=== PATIENT | female | born 1970 | race Caucasian/White ===

== ENCOUNTER → 2017-02-06 | Outpatient (CLI) | payer MEDICAID | LOC: FIMAGING 07:49 | DX: Z12.31 Encounter for screening mammogram for malignant neoplasm of breast (principal) | CPT/HCPCS: G0202 ==

== ENCOUNTER → 2017-09-09 | Outpatient (CLI) | payer MEDICAID | LOC: FIMAGING 14:50 | PROVIDERS: ATTEND Surgery | DX: R92.2 Inconclusive mammogram (principal); Z85.3 Personal history of malignant neoplasm of breast | CPT/HCPCS: G0206 ==

== ENCOUNTER 2017-11-09 09:25 | Emergency (ER) | payer MEDICAID ==
--- NOTE | 2017-11-09 09:35 | EDPHY ---
H & P Stated Complaint: cough, body aches Time Seen by Provider: 11/09/17 09:34 HPI/ROS: HPI: This is a 47-year-old female who presents with Chief Complaint: Cough, body aches Location: Chest Quality: Cough Duration: 2 weeks Signs and Symptoms: no shortness of breath at rest, no shortness of breath on exertion, + nonproductive cough, no chest pain, no palpitations, no lower extremity edema, no wheezing, no fever, no sore throat, + body aches Timing: Worsening Severity: Moderate Context: Patient has a history of sarcoidosis not on basal steroid therapy presents with complaints continued body aches, fatigue and nonproductive cough that worsens at night. Patient went to urgent care on 11/01/2017 and tested negative for influenza. Was given an inhaler and Tessalon Perles. Patient reports that these are not improving her symptoms at all. She denies any fever/ chills/sore throat/neck stiffness/muscle cramps/shortness of breath/wheezing. Patient did not receive influenza vaccine this year. Patient reports that the cough is worse at night and keeps her up. She also has postnasal drip. She has been using [id number] cough medicine and cough drops with no improvement. Advises that next pulmonology appointment is in 6 months. Modifying Factors: See above Comment: ROS: see HPI Constitutional: No fever, no chills, no weight loss Eyes: No blurred vision Respiratory: No shortness of breath, no cough Cardiovascular: No chest pain, no palpitations, no lower extremity edema Gastrointestinal: No nausea, no vomiting, no diarrhea Genitourinary: No dysuria Extremities: No myalgias Neurologic: No weakness, no numbness Skin: No rashes Hematologic: No bruising, no bleeding MEDICAL/SURGICAL/SOCIAL HISTORY: PMH: sarcoidosis, hypothyroid PSH: left breast tissue removed, polyp removed Social history: Employed. CONSTITUTIONAL: Nontoxic appearing adult white female, awake and alert, no obvious distress HEENT: Atraumatic and normocephalic, PERRL, EOMI. Tympanic membranes clear. Oropharynx clear, no exudate and moist pink mucosa. Airway patent. No lymphadenopathy. No meningismus. Cardiovascular: Normal S1/S2, regular rate, regular rhythm, without murmur rub or gallop. PULMONARY/CHEST: Symmetrical and nontender. Clear to auscultation bilaterally. Good air movement. No accessory muscle usage. Dry cough noted. ABDOMEN: Soft, nondistended, nontender, no rebound, no guarding, no peritoneal signs, no masses or organomegaly. No CVAT. EXTREMITIES: 2/2 pulses, strength 5/5, no deformities, no clubbing, no cyanosis or edema. NEUROLOGICAL: no focal neuro deficits. GCS 15. SKIN: Warm and dry, no erythema. no rash. Good capillary refill. Source: Patient Exam Limitations: No limitations - Personal History LMP (Females 10-55): Unknown Current Tetanus/Diphtheria Vaccine: Yes Current Tetanus Diphtheria and Acellular Pertussis (TDAP): Yes Tetanus Vaccine Date: 2007 - Medical/Surgical History Hx Asthma: Yes Hx Chronic Respiratory Disease: Yes Hx Diabetes: No Hx Cardiac Disease: No Hx Renal Disease: No Hx Cirrhosis: No Hx Alcoholism: No Hx HIV/AIDS: No Hx Splenectomy or Spleen Trauma: No Other PMH: PMH: sarcoidosis, hypothyroid. PSH: left breast tissue removed, polyp removed - Social History Smoking Status: Never smoked Constitutional: Initial Vital Signs Temperature (C) 37 C 11/09/17 09:31 Heart Rate 84 11/09/17 09:31 Respiratory Rate 16 11/09/17 09:31 Blood Pressure 130/79 H 11/09/17 09:31 O2 Sat (%) 95 11/09/17 09:31 O2 Delivery Mode Room Air Allergies/Adverse Reactions: No Known Allergies Allergy (Verified 11/09/17 09:29) Home Medications: Medication Instructions Recorded Synthroid 75 mcg (RX) 01/16/16 Benzonatate 11/09/17 Clarithromycin [Biaxin (*)] 500 mg PO BID #14 tab 11/09/17 Dulera 100 Mcg/5 Mcg Inhaler 11/09/17 Ranitidine HCl 11/09/17 predniSONE [predniSONE TAPER] 10 mg PO DAILY 6 Days ea 11/09/17 Medical Decision Making - Diagnostics Imaging Results: Imaging Impressions Chest X-Ray 11/09/17 09:42 Impression: Mild airways disease. No pneumonia or evidence of sarcoidosis. ED Course/Re-evaluation: Chest x-ray, oral medications ordered O2 sats 95% on room air. Lung exam clear. Chest x-ray my read shows no opacity, no effusion, no pneumothorax. Clips noted secondary to lumpectomy. Given Prednisone 60 mg Symptoms greater than 10 days and history of sarcoidosis; will treat with Biaxin and steroid taper. Advised pulmonology follow-up. This patient was seen under the supervision of my secondary supervising physician. I evaluated care for this patient independently. Differential Diagnosis: Differential diagnosis includes but is not limited to postviral cough, viral syndrome, bronchitis, pneumonia. - Data Points Medications Given: Discontinued Medications Prednisone (Prednisone) 60 mg PO EDNOW ONE Stop: 11/09/17 09:44 Last Admin: 11/09/17 09:57 Dose: 60 mg Departure - Departure Disposition: Home, Routine, Self-Care Clinical Impression: Lower respiratory infection (e.g., bronchitis, pneumonia, pneumonitis, pulmonitis), Sarcoidosis Condition: Good Instructions: Acute Bronchitis (ED), Acute Cough (ED) Additional Instructions: Chest x-ray did not show pneumonia. Please take Biaxin and Prednisone taper as directed. Consume a minimum of 8-10 glasses of water or electrolyte fluid replacement drinks that include Gatorade, Powerade, Pedialyte. Continue to use inhaler as needed for wheezing/shortness of breath. Follow-up with your machine puller over in 1-2 months. Referrals: Jazmine Moeller PA [Primary Care Provider] - As per Instructions Stand Alone Forms: Work Excuse Prescriptions: Clarithromycin [Biaxin (*)] 500 mg PO BID #14 tab predniSONE [predniSONE TAPER] 10 mg PO DAILY 6 Days ea
[2017-11-09] MEDS ORDERED: OXYCODONE/APAP 5/325 TAB PO ONE (09:43)
[2017-11-09] MEDS ORDERED: predniSONE 20 MG TAB PO ONE (09:43)
[2017-11-09 09:46] VITALS: TEMP 98.6; O2SAT 95
[2017-11-09] MEDS ORDERED: predniSONE 20 MG TAB ONE (09:59)
[2017-11-09 10:47] VITALS: BP 125/87; PULSE 88; RESP 18
== END 2017-11-09 10:45 | disposition home or self-care (01) ==
DX: J22 Unspecified acute lower respiratory infection (principal); D86.9 Sarcoidosis, unspecified; J45.909 Unspecified asthma, uncomplicated
CPT/HCPCS: J7512

== ENCOUNTER 2018-03-27 17:11 | Emergency (ER) | payer MEDICAID ==
[2018-03-27 17:19] VITALS: BP 124/94
--- NOTE | 2018-03-27 17:33 | EDPHY ---
H & P Stated Complaint: pt with hemorrhoids rx steroid supp/having trouble getting rx from pharmacy Time Seen by Provider: 03/27/18 17:21 HPI/ROS: CHIEF COMPLAINT: Prescription refill HISTORY OF PRESENT ILLNESS: Patient is a 47-year-old female who is seen at the urgent care few hours ago. She had a rectal examination and was found have internal hemorrhoids. She was prescribed steroid suppositories. When she tried to fill a prescription she was told that she would need to have her insurance approve it 1st. They said that this soon as she can get it is tomorrow. She came to the ER hoping that we have a steroid suppositories she can be treated with. She does not wish to have repeat examination. REVIEW OF SYSTEMS: Constitutional: denies: chills, fever, recent illness, recent injury EENTM: denies: blurred vision, double vision, nose congestion Respiratory: denies: cough, shortness of breath Cardiac: denies: chest pain, irregular heart rate, lightheadedness, palpitations Gastrointestinal/Abdominal: denies: abdominal pain, diarrhea, nausea, vomiting, blood streaked stools Genitourinary: See HPI denies: dysuria, frequency, hematuria, pain Musculoskeletal: denies: joint pain, muscle pain Skin: denies: lesions, rash, jaundice, bruising Neurological: denies: headache, numbness, paresthesia, tingling, dizziness, weakness Hematologic/Lymphatic: denies: blood clots, easy bleeding, easy bruising Immunologic/allergic: denies: HIV/AIDS, transplant EXAM: GENERAL: Well-appearing, well-nourished and in no acute distress. HEAD: Atraumatic, normocephalic. EYES: Pupils equal round and reactive to light, extraocular movements intact, sclera anicteric, conjunctiva are normal. ENT: nares patent, oropharynx clear without exudates. Moist mucous membranes. NECK: Normal range of motion, supple without lymphadenopathy or JVD. LUNGS: Breath sounds clear to auscultation bilaterally and equal. No wheezes rales or rhonchi. HEART: Regular rate and rhythm without murmurs, rubs or gallops. ABDOMEN: Soft, nontender, normoactive bowel sounds. No guarding, no rebound. No masses appreciated. BACK: No CVA tenderness, no spinal tenderness, step-offs or deformities EXTREMITIES: Normal range of motion, no pitting or edema. No clubbing or cyanosis. NEUROLOGICAL: Cranial nerves II through XII grossly intact. Normal speech, normal gait. 5/5 strength, normal movement in all extremities, normal sensation PSYCH: Normal mood, normal affect. SKIN: Warm, dry, normal turgor, no visible rashes or lesions. Source: Patient Exam Limitations: No limitations - Personal History LMP (Females 10-55): Over 28 Days Ago Current Tetanus Diphtheria and Acellular Pertussis (TDAP): Yes Tetanus Vaccine Date: 2007 - Medical/Surgical History Hx Asthma: Yes Hx Chronic Respiratory Disease: Yes Hx Diabetes: No Hx Cardiac Disease: No Hx Renal Disease: No Hx Cirrhosis: No Hx Alcoholism: No Hx HIV/AIDS: No Hx Splenectomy or Spleen Trauma: No Other PMH: PMH: sarcoidosis, hypothyroid. PSH: left breast tissue removed, polyp removed. uterine ablation - Family History Significant Family History: No pertinent family hx - Social History Smoking Status: Never smoked Alcohol Use: Sober Constitutional: Initial Vital Signs Temperature (C) 36.3 C 03/27/18 17:14 Heart Rate 80 03/27/18 17:14 Respiratory Rate 16 03/27/18 17:14 Blood Pressure 124/94 H 03/27/18 17:14 O2 Sat (%) 94 03/27/18 17:14 O2 Delivery Mode Room Air Allergies/Adverse Reactions: No Known Allergies Allergy (Verified 03/27/18 17:14) Home Medications: Medication Instructions Recorded Synthroid 75 mcg (RX) 01/16/16 Pramoxine HCl/Zinc Oxide 56 gm TP QID 7 Days oint...g. 03/27/18 [Hemorrhoid 1%-12.5% Ointment] Medical Decision Making ED Course/Re-evaluation: The we will contact pharmacy to see if we have a steroid suppository. If not I instructed her to keep I [id number] hydrocortisone cream unusable gloves or tissues to inserted into her rectum. We also discussed prescribing Anusol. Differential Diagnosis: Partial list of the Differential diagnosis considered include but were not limited to; internal hemorrhoid, external hemorrhoid, medication refill and although unlikely based on the history and physical exam, I also considered hemorrhage, rectal fissure. I discussed these differential diagnoses and the plan with the patient as well as the usual and expected course. The patient understands that the diagnosis is provisional and that in medicine we are not always correct and that further workup is often warranted. Usual and customary warnings were given. All of the patient's questions were answered. The patient was instructed to return to the emergency department should the symptoms at all worsen or return, otherwise to followup with the physician as we discussed. - Data Points Medications Given: Discontinued Medications Hydrocortisone (Colocort) 100 mg [place] EDNOW ONE Stop: 03/27/18 17:41 Last Admin: 03/27/18 18:20 Dose: 100 mg Departure - Departure Disposition: Home, Routine, Self-Care Clinical Impression: Internal hemorrhoids Condition: Fair Instructions: Hemorrhoids (ED) Referrals: Jazmine Moeller PA [Primary Care Provider] - As per Instructions Prescriptions: Pramoxine HCl/Zinc Oxide [Hemorrhoid 1%-12.5% Ointment] 56 gm TP QID 7 Days oint...g.
[2018-03-27] MEDS ORDERED: HYDROCORTISONE 100 MG/60 ML ENEMA BOTTLE PR ONE (17:40)
== END 2018-03-27 18:05 | disposition home or self-care (01) ==
DX: K64.8 Other hemorrhoids (principal); J45.909 Unspecified asthma, uncomplicated; Z76.0 Encounter for issue of repeat prescription

== ENCOUNTER 2018-05-26 16:11 | Emergency (ER) | payer MEDICAID ==
[2018-05-26 16:18] VITALS: BP 110/79
--- NOTE | 2018-05-26 16:36 | EDPHY ---
H & P Stated Complaint: urinary pain Time Seen by Provider: 05/26/18 16:14 HPI/ROS: CHIEF COMPLAINT: Dysuria HISTORY OF PRESENT ILLNESS: The patient presents to the ED with a several day history dysuria. She has been taking azo over the counter. She reports her last urinary tract infection was several years ago. She denies any flank pain, fever or vomiting. She denies additional acute complaints. REVIEW OF SYSTEMS: A comprehensive 10 point review of systems is otherwise negative aside from elements mentioned in the history of present illness. Source: Patient Exam Limitations: No limitations - Personal History LMP (Females 10-55): Hysterectomy Current Tetanus/Diphtheria Vaccine: No Current Tetanus Diphtheria and Acellular Pertussis (TDAP): No Tetanus Vaccine Date: 2007 - Medical/Surgical History Hx Asthma: Yes Hx Chronic Respiratory Disease: Yes Hx Diabetes: No Hx Cardiac Disease: No Hx Renal Disease: No Hx Cirrhosis: No Hx Alcoholism: No Hx HIV/AIDS: No Hx Splenectomy or Spleen Trauma: No Other PMH: PMH: sarcoidosis, hypothyroid. PSH: left breast tissue removed, polyp removed. uterine ablation - Social History Smoking Status: Never smoked - Physical Exam Exam: General Appearance: Alert, no distress Respiratory: There are no retractions, lungs are clear to auscultation Cardiovascular: Regular rate and rhythm Gastrointestinal: Abdomen is soft and nontender, no masses, bowel sounds normal , no CVA tenderness Neurological: 5/5 strength all 4 extremities Skin: Warm and dry, no rashes Constitutional: Initial Vital Signs Temperature (C) 37.5 C 05/26/18 16:15 Heart Rate 87 05/26/18 16:15 Respiratory Rate 16 05/26/18 16:15 Blood Pressure 110/79 05/26/18 16:15 O2 Sat (%) 94 05/26/18 16:15 O2 Delivery Mode Room Air Allergies/Adverse Reactions: No Known Allergies Allergy (Verified 05/26/18 16:14) Home Medications: Medication Instructions Recorded Synthroid 75 mcg (RX) 01/16/16 Azo Urinary Pain Relief 05/26/18 Ciprofloxacin [Cipro] 500 mg PO BID #14 tab 05/26/18 Medical Decision Making ED Course/Re-evaluation: The patient presents to the ED with cystitis. She has no clinical evidence of pyelonephritis. She will be treated with Cipro 500mg twice days for 7 days. Differential Diagnosis: Differential diagnosis considered includes cystitis, pyelonephritis - Data Points Laboratory Results: 05/26/18 16:20 Urine Color [place] Urine Appearance HAZY Urine pH 6.0 (5.0-7.5) Ur Specific [place] 1.023 (1.002-1.030) Urine Protein NEGATIVE (NEGATIVE) Urine Ketones NEGATIVE (NEGATIVE) Urine Blood NEGATIVE (NEGATIVE) Urine Nitrate POSITIVE H (NEGATIVE) Urine Bilirubin NEGATIVE (NEGATIVE) Urine Urobilinogen 4.0 EU H EU (0.2-1.0) Ur Leukocyte Esterase NEGATIVE (NEGATIVE) Urine RBC 1-3 /hpf /hpf (0-3) Urine WBC 15-25 /hpf H /hpf (0-3) Ur Epithelial Cells 2+ /lpf H /lpf (NONE-1+) Urine Bacteria 3+ /hpf H /hpf (NONE SEEN) Urine Mucus 2+ /lpf H /lpf (NONE-1+) Urine Glucose NEGATIVE (NEGATIVE) Departure - Departure Disposition: Home, Routine, Self-Care Clinical Impression: UTI (urinary tract infection) Qualifiers: Urinary tract infection type: acute cystitis Condition: Good Instructions: Urinary Tract Infection in Women (ED) Additional Instructions: 1. Antibiotics as directed. 2. Return to the ED for any worsening symptoms, fever, vomiting or back pain Referrals: Jazmine Moeller PA [Primary Care Provider] - As per Instructions Prescriptions: Ciprofloxacin [Cipro] 500 mg PO BID #14 tab
== END 2018-05-26 17:05 | disposition home or self-care (01) ==
DX: N30.90 Cystitis, unspecified without hematuria (principal); Z90.710 Acquired absence of both cervix and uterus

== ENCOUNTER → 2018-07-26 | Outpatient (CLI) | payer MEDICAID | LOC: BMCIMAGING 10:59 | PROVIDERS: ATTEND Physician Assistant Medical | DX: M79.641 Pain in right hand (principal) ==

== ENCOUNTER → 2018-09-06 | Outpatient (CLI) | payer MEDICAID | LOC: FIMAGING 12:21 | PROVIDERS: ATTEND Surgery | DX: Z12.31 Encounter for screening mammogram for malignant neoplasm of breast (principal); Z80.3 Family history of malignant neoplasm of breast ==